=== PATIENT | female | born 1955 | race Two or more races ===

== ENCOUNTER 2021-07-10 15:04 | Outpatient (CLI) | payer OTHER | END 2021-07-10 15:16 | disposition home or self-care (01) | LOC: TOM 15:04 | PROVIDERS: ATTEND Specialist | DX: K57.90 Diverticulosis of intestine, part unspecified, without perforation or abscess without bleeding (principal) ==

== ENCOUNTER 2021-09-04 14:19 | Emergency (ER) | payer OTHER ==
[~2021-09-04] VITALS: Ht 165.1 cm; Wt 87.1 kg
[2021-09-04] MEDS ORDERED: SIMVASTATIN20 MG PO (14:44)
[2021-09-04] MEDS ORDERED: DICLOFENAC SOD100 GM TP (14:44)
[2021-09-04] MEDS ORDERED: CIPRO500 MG PO (18:02)
[2021-09-04] MEDS ORDERED: TAMS0.4C PO (18:02)
[2021-09-05] MEDS ORDERED: PERCOCET 5-3251 EACH PO (15:09)
== END 2021-09-04 18:22 | disposition home or self-care (01) ==
LOC: ER 14:19
DX: N20.9 Urinary calculus, unspecified (principal); Z88.6 Allergy status to analgesic agent

== ENCOUNTER 2021-09-05 12:51 | Outpatient (CLI) | payer OTHER ==
[~2021-09-05 12:51] MED LIST: CIPRO500 MG PO; DICLOFENAC SOD100 GM TP; SIMVASTATIN20 MG PO; TAMS0.4C PO
[2021-09-05] MEDS ORDERED: PERCOCET 5-3251 EACH PO (15:09)
[2021-09-08] MEDS ORDERED: ZOFRAN8 MG PO (14:12)
== END 2021-09-05 12:56 | disposition home or self-care (01) ==
LOC: RAD 12:51
PROVIDERS: ATTEND Urology
DX: N20.0 Calculus of kidney (principal); I10 Essential (primary) hypertension

== ENCOUNTER 2021-09-05 13:33 | Outpatient (CLI) | payer OTHER ==
[2021-09-05] MEDS ORDERED: PERCOCET 5-3251 EACH PO (15:09)
[2021-09-08] MEDS ORDERED: ZOFRAN8 MG PO (14:12)
== END 2021-09-05 15:00 | disposition home or self-care (01) ==
LOC: LAB 13:33
PROVIDERS: ATTEND Urology
DX: D68.8 Other specified coagulation defects (principal); Z20.828 Contact with and (suspected) exposure to other viral communicable diseases; N20.0 Calculus of kidney; Z01.810 Encounter for preprocedural cardiovascular examination

== ENCOUNTER 2021-09-10 12:45 | Day surgery (SDC) | payer OTHER ==
[~2021-09-10 12:45] MED LIST changes: +PERCOCET 5-3251 EACH PO; +ZOFRAN8 MG PO
== END 2021-09-10 21:40 | disposition home or self-care (01) ==
LOC: CIR.AMB 12:45
PROVIDERS: ATTEND Urology
DX: N20.1 Calculus of ureter (principal)

== ENCOUNTER 2021-10-15 06:16 | Day surgery (SDC) | payer OTHER ==
[~2021-10-15 06:16] MED LIST changes: +SINGULAIR10 MG PO
== END 2021-10-15 16:45 | disposition home or self-care (01) ==
LOC: CIR.AMB 06:16
PROVIDERS: ATTEND Urology
DX: N20.0 Calculus of kidney (principal); Z87.442 Personal history of urinary calculi; Z88.8 Allergy status to other drugs, medicaments and biological substances; J45.909 Unspecified asthma, uncomplicated; J32.9 Chronic sinusitis, unspecified; Z20.822 Contact with and (suspected) exposure to COVID-19